=== PATIENT | female | born 1950 | race Caucasian/White ===

== ENCOUNTER → 2016-10-15 | Outpatient (CLI) | payer BC, OTHER ==
--- NOTE | 2016-10-15 11:14 | DX ---
Bilateral Knees, 5 weightbearing views of the left knee and 4 views of the right knee. 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 AP standing views are normal and symmetric. On the merchant views there is chronic asymmetrical mild lateral tilting of the right patella, which is mildly more laterally displaced than it was previously. The left patella is in the central portion o f the patellofemoral joint and is not tilted. On the merchant view of the left patella there is some lucency involving the posterior patella that is of uncertain chronicity, and may be related to fixati on pegs of the patellar implant. On the lateral views both patellas are in normal position, the right being stable. There is no evidence of implant loosening or infection. There is atherosclerotic calci fication of both distal femoral and popliteal arteries. Impression: Patellofemoral findings described above, of uncertain clinical significance. Clinical cor relation with the site of symptoms is required.
== END ==
LOC: BMCIMAGING 09:01
PROVIDERS: ATTEND Orthopaedic Surgery
DX: M25.561 Pain in right knee (principal); M25.562 Pain in left knee; Z96.653 Presence of artificial knee joint, bilateral